=== PATIENT | female | born 1990 | race Caucasian/White ===

== ENCOUNTER 2019-12-30 14:15 | Emergency (ER) | payer OTHER, SELFPAY ==
[2019-12-30 14:23] VITALS: BP 119/68; PULSE 93; RESP 16; TEMP 36.4; O2SAT 100
--- NOTE | 2019-12-30 14:32 | ED.GENADULT ---
HPI - General Adult General Chief complaint: Back Pain/Injury Stated complaint: back injury Time Seen by Provider: 12/30/19 14:32 Source: patient Mode of arrival: ambulatory Limitations: no limitations History of Present Illness HPI narrative: 29-year-old female patient presents to the [facility] with complaints of low back pain that started yesterday. Patient states that she was picking up her knees trying to give her medication and twisted and fell onto the couch. Patient states that she did not have any immediate pain but about 2 hours later started having pain to the lower back on the left side. Patient denies any numbness or tingling to the lower extremities. Patient denies any loss of bowel or bladder control. Patient states she has taken a couple doses of Tylenol for pain as well as a heating pad. Related Data Allergies Allergy/AdvReac Type Severity Reaction Status Date / Time Sulfa (Sulfonamide Allergy Rash Verified 12/30/19 14:32 Antibiotics) Review of Systems Review of Systems: Narrative: CONSTITUTIONAL: Denies fever, chills, or sweats. EYES: Denies visual changes, redness, or discharge. ENT: Denies rhinorrhea, congestion, sore throat, or otalgia. CARDIOVASCULAR: Denies chest pain, palpitations, or edema. RESPIRATORY: Denies cough or dyspnea. GASTROINTESTINAL: Denies abdominal pain, nausea, vomiting, or diarrhea. GENITOURINARY: Denies dysuria or hematuria. SKIN: Denies rash or itching. MUSCULOSKELETAL: Positive left-sided lower back pain, denies joint pain, or myalgia. NEUROLOGIC: Denies headache, numbness, or weakness. PSYCHIATRIC: Denies anxiety or depression. PMFSH Comments At the time of my signature I agree with nursing past medical history, surgical, social, and family history. There is no relevant family history pertinent to the presenting complaint. Exam Narrative: Exam Narrative: GENERAL: Well-appearing, well-nourished, and in no acute distress. HEAD: Normocephalic, atraumatic. EYES: PERRLA and EOMI. ENT: Nares clear, no rhinorrhea or epistaxis. Mucous membranes moist. NECK: Supple. No lymphadenopathy CHEST: Clear to auscultation. No respiratory distress. HEART: Regular rate and rhythm. No murmur heard. Normal peripheral pulses. ABDOMEN: Soft, nontender, nondistended, normal active bowel sounds. EXTREMITIES: Normal range of motion. No edema. BACK: Patient is able to ambulated without assistance. No surface trauma noted. muscle tenderness to Palpation with a small muscle spasm noted to the left middle back.. No step-offs or deformity noted to the cervical, thoracic or lumbar spine to firm Palpation at the midline. No CVA tenderness to percussion. No saddle anesthesia. ROM: able to stand erect. Normal flexion, extension, Lateral bending and rotation without limitation or complaint of pain. SKIN: Warm, dry, no rash. NEURO: No focal deficits. Alert and oriented x3. Course Vital Signs Vital signs: Vital Signs Temperature 36.4 C 12/30/19 14:23 Pulse Rate 93 12/30/19 14:23 Respiratory Rate 16 12/30/19 14:23 Blood Pressure 119/68 12/30/19 14:23 Pulse Oximetry 100 12/30/19 14:23 Temperature 36.4 C 12/30/19 14:23 Pulse Rate 93 12/30/19 14:23 Respiratory Rate 16 12/30/19 14:23 Blood Pressure 119/68 12/30/19 14:23 Pulse Oximetry 100 12/30/19 14:23 Vital signs reviewed. Medical Decision Making Differential Diagnosis Differential Diagnosis: Differential diagnosis: Acute musculoskeletal injury or exacerbation, neurological emergency, acute coronary syndrome, kidney stones, epidural abscess or hematoma,Cauda Equina Syndrome, herniation. Discussed with patient this is most likely muscle spasm due to her twisting and falling yesterday. Discussed with her that she should continue using Tylenol and ibuprofen to help with the pain, continue using a heating pad and doing gentle stretching exercises and massage. Discussed with her I will give her a little bit of muscle relaxant a
== END 2019-12-30 14:50 | disposition home or self-care (01) ==
PROVIDERS: Emergency Provider Nurse Practitioner Family
DX: M62.830 Muscle spasm of back (principal)
CPT/HCPCS: 99203; G0463

== ENCOUNTER 2020-05-18 12:46 | Emergency (ER) | payer MEDICAID, SELFPAY ==
[2020-05-18 13:25] VITALS: BP 140/92; PULSE 104; RESP 20; TEMP 37; O2SAT 99
--- NOTE | 2020-05-18 13:33 | ED.URI ---
HPI - URI/Sore Throat General Chief Complaint: Upper Respiratory Infection Stated Complaint: URI Time Seen by Provider: 05/18/20 13:33 Source: patient and RN notes reviewed History of Present Illness HPI Narrative: Patient is a 30-year-old female who presents the urgent care with complaints of 3-day history of intermittent headaches and sinus pressure with a runny nose. Patient states that she drank some Mucinex liquid this morning without much improvement. Denies of any wheezing, shortness of breath, fever, nausea, vomiting. Patient has not anything else [id number] for her symptoms. No other acute complaints. No acute distress noted. Patient read the plan of care. Related Data Home Medications Medication Instructions Recorded Confirmed No Home Medications 05/18/20 05/18/20 Allergies Allergy/AdvReac Type Severity Reaction Status Date / Time pseudoephedrine Allergy Hives Verified 05/18/20 13:43 [From [facility]] Sulfa (Sulfonamide Allergy Rash Verified 12/30/19 14:32 Antibiotics) Review of Systems Review of Systems: Narrative: CONSTITUTIONAL: Denies fever, chills, or sweats. EYES: Denies visual changes, redness, or discharge. ENT: Reports of runny nose, sinus pressure and intermittent sore throat CARDIOVASCULAR: Denies chest pain, palpitations, or edema. RESPIRATORY: Denies cough or dyspnea. GASTROINTESTINAL: Denies abdominal pain, nausea, vomiting, or diarrhea. GENITOURINARY: Denies dysuria or hematuria. SKIN: Denies rash or itching. MUSCULOSKELETAL: Denies back pain, joint pain, or myalgia. NEUROLOGIC: Denies headache, numbness, or weakness. All other systems reviewed are negative, except as documented in HPI. PMFSH Comments At the time of my signature, I reviewed and agree with the nursing past medical, surgical, social, and family history. There is no relevant family history pertinent to the patient complaint. Exam Narrative: Exam Narrative: GENERAL: This is a well-nourished, well-developed patient, in no apparent distress. HEAD: normocephalic, atraumatic. Frontal sinus tenderness EYES: PERRL. Sclera clear/white. Vision is grossly intact. EARS: External ears normal, auditory canals clear and without drainage, TMs normal without perforation. Hearing grossly intact. NOSE: External nose normal with no obvious nasal discharge, nares without redness, no rhinorrhea. THROAT: Mucous membranes moist, posterior pharynx clear. Moderate postnasal drainage NECK: Neck supple CARDIOVASCULAR: Regular rate and rhythm without murmurs, gallops, or rubs. RESPIRATORY: Clear to auscultation. Breath sounds equal bilaterally. No wheezes, rales, or rhonchi. SKIN: warm, intact with no suspicious lesions or rash, good texture and turgor. NEURO: awake, alert, and oriented to person, place and time. There were no obvious focal neurologic abnormalities. EXTREMITIES: No clubbing, cyanosis, or edema. Course Vital Signs Vital signs: Vital Signs Temperature 98.6 F 05/18/20 13:25 Pulse Rate 104 H 05/18/20 13:25 Respiratory Rate 20 05/18/20 13:25 Blood Pressure 140/92 H 05/18/20 13:25 Pulse Oximetry 99 05/18/20 13:25 Temperature 98.6 F 05/18/20 13:25 Pulse Rate 104 H 05/18/20 13:25 Respiratory Rate 20 05/18/20 13:25 Blood Pressure 140/92 H 05/18/20 13:25 Pulse Oximetry 99 05/18/20 13:25 Reviewed?patient is informed that they may have pre-hypertension or hypertension based on a blood pressure reading in the department. I recommend the patient call the primary care provider listed on their discharge instructions or a physician of their choice this week to arrange follow-up for further evaluation of possible pre-hypertension or hypertension. MDM - URI/Sore Throat MDM Narrative Medical decision making narrative: Advised mother to use Claritin and Flonase as directed for symptom relief. May use Tylenol/ibuprofen as needed. Increase fluids and rest. Use humidifier at night and do not sleep w
== END 2020-05-18 14:09 | disposition home or self-care (01) ==
PROVIDERS: Emergency Provider Nurse Practitioner Family
DX: J32.9 Chronic sinusitis, unspecified (principal)
CPT/HCPCS: 99211; G0463

== ENCOUNTER 2023-11-17 10:45 | Emergency (ER) | payer OTHER, SELFPAY ==
[2023-11-17 10:53] VITALS: BP 157/84; PULSE 95; RESP 16; TEMP 36.6; O2SAT 100
--- NOTE | 2023-11-17 12:23 | ED.URI ---
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 Patient also reports frequency of urination for the past 2-3 days, denies any burning or pain with urination no fevers chills or sweats and denies any nausea or vomiting. Patient denies any vaginal discharge or itching denies any concern for exposure to STD's. Patient reports that she has been taking Tylenol for her symptoms. MD elicited complaint: sore throat and other (strep exposure, urinary frequency) Onset (ago): day(s) (2-3) Pain scale (0-10): 5 Able to tolerate fluids by mouth: Yes Treatments prior to arrival: acetaminophen Related Data Allergies Allergy/AdvReac Type Severity Reaction Status Date / Time pseudoephedrine Allergy Hives Verified 11/17/23 11:16 [From Sudafed] Sulfa (Sulfonamide Allergy Rash Verified 11/17/23 11:16 Antibiotics) Review of Systems Review of Systems: CONSTITUTIONAL: Denies fever, chills, or sweats. EYES: Denies visual changes, redness, or discharge. ENT: Denies rhinorrhea, congestion, positive for sore throat, no otalgia. CARDIOVASCULAR: Denies chest pain, palpitations, or edema. RESPIRATORY: Denies cough or dyspnea. GASTROINTESTINAL: Denies abdominal pain, nausea, vomiting, or diarrhea. GENITOURINARY: Denies dysuria or hematuria.reports urinary frequency SKIN: Denies rash or itching. MUSCULOSKELETAL: Denies back pain, joint pain, or myalgia. NEUROLOGIC: Denies headache, numbness, or weakness. PSYCHIATRIC: Denies anxiety or depression. All systems reviewed & are unremarkable except as noted in HPI and below PMFSH Past Medical History Medical History (Updated 11/19/23 @ 09:31 by Yue Diaz NP) Hypertension Social History Social History (Updated 11/19/23 @ 09:31 by Yue Diaz NP) Smoking status: Never smoker Alcohol intake: current Alcohol use details: rare Substance use type: does not use Living arrangements: with family Gender identity (if verbalized by the patient): Female Comments At time of signature, agree with nursing past medical, surgical, social and family history. There is no relevant family history pertinent to the presenting complaint Exam Narrative: GENERAL: Well-appearing, well-nourished, and in no acute distress. HEAD: Normocephalic, atraumatic. EYES: PERRLA and EOMI. ENT: Nares clear, no rhinorrhea or epistaxis. Mucous membranes moist.TM's normal throat red with tonsils swollen, voices painful swallowing NECK: Supple.lymphadenopathy present CHEST: Clear to auscultation. No respiratory distress. no cough noted SAO2 100% on room air HEART: Regular rate and rhythm. No murmur heard. Normal peripheral pulses. ABDOMEN: Soft, nontender, nondistended, normal active bowel sounds. EXTREMITIES: Normal range of motion. No edema. SKIN: Warm, dry, no rash. NEURO: No focal deficits. Alert and oriented x3. Course Course Emergency Course: Patient is aware of diagnosis, understands and agrees to treatment plan.? Anticipatory guidance given.? Patient agrees to follow-up as directed and is aware of reasons to seek care at the emergency department. Portions of this record may have been created with voice recognition software Level of Care: Express Care Visit Vital Signs Vital signs: Vital Signs Temperature 36.6 C 11/17/23 10:53 Pulse Rate 95 11/17/23 10:53 Respiratory Rate 16 11/17/23 10:53 Blood Pressure 157/84 H 11/17/23 10:53 Pulse Oximetry 100 11/17/23 10:53 Oxygen Delivery Room Air 11/17/23 10:53 Temperature 36.6 C 11/17/23 10:53 Pulse Rat
== END 2023-11-17 12:36 | disposition home or self-care (01) ==
PROVIDERS: Emergency Provider Registered Nurse
DX: J03.90 Acute tonsillitis, unspecified (principal); Z20.818 Contact with and (suspected) exposure to other bacterial communicable diseases; I10 Essential (primary) hypertension
CPT/HCPCS: 81003; 87081; 87880; 99203; G0463

== ENCOUNTER 2025-07-17 17:07 | Emergency (ER) | payer OTHER, SELFPAY ==
--- OUTSIDE RECORDS SUMMARY | 2025-07-17 17:09 | XMS_ITS | Encounter Summary ---
Author Organization [facility] Address [address] [place] [address] Phone Care Team Providers Care Rn Patient Care Name Role Phone No, Physician Primary Care Provider [phone] Ruthie Duran MD Primary Care Provider Encounter Details Date Type Department Care Team (Latest Contact Info) Description 02/03/2018 Orders Only [facility] CONVERSION Scanning, Provider Social History Tobacco Use Types Packs/Day Years Used Date Smoking Tobacco: Former Comments Yes Sex and Gender Information Value Date Recorded Sex Assigned at Not on file 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 Gender Identity Not on file Sexual Orientation Not on file documented as of this encounter Plan of Treatment Not on file documented as of this encounter Procedures Procedure Name Priority Date/Time Associated Diagnosis Comments OBSTETRIC/GYNECOLOGY ULTRASONOGRAPHY REPORT 03/02/2018 2:07 PM CDT OBSTETRIC/GYNECOLOGY ULTRASONOGRAPHY REPORT 02/23/2018 4:11 PM CDT OBSTETRIC/GYNECOLOGY ULTRASONOGRAPHY REPORT 02/16/2018 1:03 PM CDT OBSTETRIC/GYNECOLOGY ULTRASONOGRAPHY REPORT 02/11/2018 12:32 PM CDT OBSTETRIC/GYNECOLOGY ULTRASONOGRAPHY REPORT 02/03/2018 11:39 AM CDT documented in this encounter Results * OBSTETRIC/GYNECOLOGY ULTRASONOGRAPHY REPORT (03/02/2018 2:07 PM CDT) Anatomical Region Laterality Modality Ultrasound us Provider Scanning IMG OB US PROCEDURES Final Res ult * OBSTETRIC/GYNECOLOGY ULTRASONOGRAPHY REPORT (02/23/2018 4:11 PM CDT) Anatomical Region Laterality Modality Ultrasound us Provider Scanning IMG OB US PROCEDURES Final Res ult * OBSTETRIC/GYNECOLOGY ULTRASONOGRAPHY REPORT (02/16/2018 1:03 PM CDT) Anatomical Region Laterality Modality Ultrasound us Provider Scanning IMG OB US PROCEDURES Final Res ult * OBSTETRIC/GYNECOLOGY ULTRASONOGRAPHY REPORT (02/11/2018 12:32 PM CDT) Anatomical Region Laterality Modality Ultrasound us Provider Scanning IMG OB US PROCEDURES Final Res ult * OBSTETRIC/GYNECOLOGY ULTRASONOGRAPHY REPORT (02/03/2018 11:39 AM CDT) Anatomical Region Laterality Modality Ultrasound us Provider Scanning IMG OB US PROCEDURES Final Res ult documented in this encounter Visit Diagnoses Not on filedocumented in this encounter Additional Health Concerns Infection Onset Date Last Indicated Resolved Time COVID: Suspected 10/31/2021 10/31/2021 11/01/2021 10:21 AM 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 11/10/2021 11/11/2021 03/10/2022 3:05 AM C DT documented as of this encounter Care Teams Rn Patient Care Relationship Specialty Start Date End Date No, Physician PCP - General 08/19/17 10/28/23 Ruthie Duran MD [address] [place] [address] [address] [place] [address] PCP - General Family Medicine 10/29/23 documented as of this encounter
--- OUTSIDE RECORDS SUMMARY | 2025-07-17 17:09 | XMS_ITS | Clinical Summary ---
Author Organization [facility] Address [address] [place] [address] Phone Care Team Providers Care Gas Leak Inspector Helper Name Role Phone Ruthie Duran MD Primary Care Provider [phone] Allergies Active Allergy Reactions Criticality Noted Date Comments Sulfa Antibiotics Hives 05/29/2016 Medications ondansetron (ZOFRAN) 4 MG Tablet Take 1-2 Tabs by mouth every 8 hours as needed for Nausea - 1st line. 15 Tab 12/14/2018 Active HYDROcodone-kecia taminophen (NORCO) 5-325 MG TabletIndicatio ns:Infected dental caries Take 1 Tablet by mouth every 8 hours as needed for Moderate or more severe pain or Severe pain. 12 Tablet 07/21/2021 Active HYDROcodone-kecia taminophen (NORCO) 5-325 MG TabletIndicatio ns:Infected dental caries Take 1 Tablet by mouth every 8 hours as needed for Severe pain. 12 Tablet 07/21/2021 Active Vit-Fe Fumarate-FA ( VITAMINS PO) Take by mouth. Active hydrOXYzine (VISTARIL) 25 MG CapsuleIndicati ons:Anxiety Take 1 Capsule by mouth 3 times daily as needed for Anxiety. Indications: Feeling Anxious 30 Capsule 01/25/2025 Active Active Problems No known active problems Immunizations Immunization Administration Dates Next Due DTP Vaccine 07/29/1994, 1,01/24/1990,1989,1989 Hepatitis B Vaccine, Pediatric/adolescent 06/01/2000,07/16/1999 Hib Vaccine,unspecified Formulation 07/19/1990 Influenza Vaccine,unspecifie d Formulation 08/30/2006 MMR Vaccine 07/29/1994,07/19/1990 OPV 07/29/1994, 1,01/24/1990,1988 TD VACCINE 12/31/2005 TDAP Vaccine 03/20/2022,01/31/2018,2013 Family History Medical History Relation Name Comments Cancer Father Diabetes Mother Hypertension Mother Relation Name Status Comments Father Alive Mother Alive Social History Tobacco Use Types Packs/Day Years Used Date Smoking Tobacco: Former Cigarettes Smokeless Tobacco: Never Alcohol Use Standard Drinks/Week Comments No 0 (1 standard drink = 0.6 oz pur e alcohol) PHQ-2 Answer Date Recorded PHQ-2 Score 0 06/27/2019 Comments Unknown Sex and Gender Information Value Date Recorded Sex Assigned at Not on file Legal Sex Female 2:39 PM CDT Gender Identity Not on file Sexual Orientation Not on file Last Filed Vital Signs Vital Sign Reading Time Taken Comments Blood Pressure 109/66 01/25/2025 9:15 PM CDT Pulse 72 01/25/2025 9:15 PM CDT Temperature 36.9 C (98.5 F) 01/25/2025 7:38 PM CDT Respiratory Rate 17 01/25/2025 9:15 PM CDT Oxygen Saturation 98% 01/25/2025 9:15 PM CDT Inhaled Oxygen Concentration - - Weight 122 kg (269 lb) 01/25/2025 7:38 PM CDT Height 170.2 cm (5' 7) 01/25/2025 7:38 PM CDT Body Mass Index 42.13 01/25/2025 7:38 PM CDT Plan of Treatment Health Maintenance Due Date Last Done Comments Hepatitis C Virus (HCV) Screening 1989 Hepatitis B Immunization (3 of 3 - 3-dose series) 07/27/2000 06/01/2000, 07/16/1999 Human Papillomavirus (HPV) Immunization (1 - 3-dose SCDM series) 2016 HPV/Cotest 2019 Cervical Cancer Screening (CCS) 11/13/2019 Pap Smear 11/13/2019 11/13/2016 Influenza Immunization (#1) 2025 08/30/2006 SARS-COV-2 Immunization (2023-25 season) 2025 DTaP/Tdap/Td Immunization (9 - Td or Tdap) 03/20/2032 03/20/2022, 01/31/2018, 2013, Additional history exists Respiratory Syncytial Virus (RSV) Immunization (Adult) (1 - 1-dose 75+ series) 2064 TdaP Immunization Discontinued 03/20/2022, , 2013 Meningococcal Immunization (ACWY) Aged Out No longer eligible based on patient's age to complete this topic Pneumococcal Immunization Combined Aged Out No longer eligible based on patient's age to complete this topic Rotavirus Immunization Aged Out No lo nger eligible based on patient's age to complete this topic Procedures Procedure Name Priority Date/Time Associated Diagnosis Comments PATHOLOGY CYTOLOGY AMBULANCE ATTENDANT Routine 11/13/2016 from Last 3 Months or Most Recently Relevant to Health Maintenance Results * PATHOLOGY CYTOLOGY AMBULANCE ATTENDANT (11/13/2016) Specimen of unknown material (specimen) Negra Gonzalez PAC PATHOLOGY/CYTOLOGY ORDERA BLES Final Result from Last 3 Months or Most Recently Relevant to Health Maintenance Insurance MEDICAID [employer] Care Teams Gas Leak Inspector Helper Relationship Specialty Start Date End Date Ruthie Duran MD [address] [place] [address] [facility] [place] [address] PCP - General Family Medicine 05/21/24
--- OUTSIDE RECORDS SUMMARY | 2025-07-17 17:10 | XMS_ITS | Encounter Summary ---
Author Organization [facility] Address [address] [place] [address] Phone Care Team Providers Care Information Technology Professor Name Role Phone No, Physician Primary Care Provider [phone] Ruthie Duran MD Primary Care Provider Encounter Details Date Type Department Care Team (Latest Contact Info) Description 12/06/2017 Orders Only [facility] CONVERSION Scanning, Provider Social History Tobacco Use Types Packs/Day Years Used Date Smoking Tobacco: Unknown Comments Yes Sex and Gender Information Value Date Recorded Sex Assigned at Not on file 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 Gender Identity Not on file Sexual Orientation Not on file documented as of this encounter Plan of Treatment Not on file documented as of this encounter Procedures Procedure Name Priority Date/Time Associated Diagnosis Comments OBSTETRIC/GYNECOLOGY ULTRASONOGRAPHY REPORT 01/03/2018 2:42 PM CDT OBSTETRIC/GYNECOLOGY ULTRASONOGRAPHY REPORT 12/06/2017 5:04 PM STUDENT SPECIALIST documented in this encounter Results * OBSTETRIC/GYNECOLOGY ULTRASONOGRAPHY REPORT (01/03/2018 2:42 PM CDT) Anatomical Region Laterality Modality Ultrasound us Provider Scanning IMG OB US PROCEDURES Final Res ult * OBSTETRIC/GYNECOLOGY ULTRASONOGRAPHY REPORT (12/06/2017 5:04 PM STUDENT SPECIALIST) Anatomical Region Laterality Modality Ultrasound us Provider Scanning IMG OB US PROCEDURES Final Res ult documented in this encounter Visit Diagnoses Not on filedocumented in this encounter Additional Health Concerns Infection Onset Date Last Indicated Resolved Time COVID: Suspected 10/31/2021 10/31/2021 11/01/2021 10:21 AM STUDENT SPECIALIST COVID19 10/31/2021 10/31/2021 11/10/2021 3:05 AM STUDENT SPECIALIST COVID: Recovered Comment:Added based on recent COVID infection. 11/10/2021 11/11/2021 03/10/2022 3:05 AM C DT documented as of this encounter Care Teams Information Technology Professor Relationship Specialty Start Date End Date No, Physician PCP - General 08/19/17 10/28/23 Ruthie Duran MD [address] [facility] [address] [place] [id number] PCP - General Family Medicine 10/29/23 documented as of this encounter
--- OUTSIDE RECORDS SUMMARY | 2025-07-17 17:10 | XMS_ITS | Clinical Summary ---
Author Organization [facility] Address [address] [place] [address] Care Team Providers Care Pulley Worker Name Role Phone Ruthie Duran MD Primary Care Provider Allergies Active Allergy Reactions Criticality Noted Date Comments Sulfa (Sulfonamide Antibiotics) Rash,Hives Medium 09/11 Medications albuterol HFA (PROVENTIL HFA,VENTOLIN HFA,PROAIR HFA) 90 mcg/actuation inhalerIndication s:Acute Asthma Attack Inhale 2 puffs every 6 (six) hours as needed for wheezing 1 each 1 2 Active Additional Information Patient not taking.Reported on 01/15/2022 vitamin ferrous fumarate-folic () 28 mg iron- 800 mcg tablet Take 1 tablet by mouth daily 30 tablet 11 2 Active docusate sodium (COLACE) 100 mg capsuleIndication s:constipation,St ool Softener Take 1 capsule (100 mg total) by mouth 2 (two) times a day 60 capsule 2 Active ibuprofen (ADVIL,MOTRIN) 600 mg tabletIndications :Cramps Take 1 tablet (600 mg total) by mouth every 6 (six) hours as needed for pain 40 tablet 2 Active norethindrone (MICRONOR) 0.35 mg tabletIndications : Contraception Take 1 tablet (0.35 mg total) by mouth daily 1 po qd at same time of day 84 tablet 4 5 Active lisinopriL (PRINIVIL,ZESTRIL ) 20 mg tablet Take 1 tablet (20 mg total) by mouth daily Active Active Problems Problem Noted Date Diagnosed Date Tubal ligation evaluation 01/15/2022 Overview (01/15/2022): 01/15- Desires permanent contraception. [place] papers signed today. Mild intermittent asthma 11/25/2021 Overview (03/20/2022): Reports rare asthma use. Denies hospitalizations or intubations. 11/25- Reports an increase in symptoms since COVID diagnosis, needs a rescue inhaler. Rx sent. 12/30/21-Denies symptoms. 01/15- Asymptomatic. 03/17- Asymptomatic. Chronic hypertension during 09/02/2021 Overview (03/20/2022): S/p counseling CURRENT REGIMEN: ASA 81 mg daily, counseled to stop taking 03/20 in anticipation of delivery [x]Baseline labs: crea 0.66, ALT AST 7 14 plts 377. 09/30- 24 hour urine supplies given [x]ASA therapy: Rx sent, instructed to start at 12 weeks. 09/30- Reviewed the need to start ASA [x]BP monitoring [x]EKG: ordered. NSR [x]serial GS - AGA 03/13 [x]Delivery 38-39 wks - IOL scheduled on 03/25 @ 0530 at 39 weeks Assessment & Plan (03/13/2022 9:26 AM CDT): Given mild range today and report of BP 150s at home and gestational age, to [facility] for rule out superimposed preE at term. [facility] INSTRUCTIONAL TECHNOLOGY TEACHER aware. Assessment & Plan (02/19/2022 4:47 PM CDT): Sent to [facility] today for rule out preE given severe range BPs. Discussed possibility of delivery given GA H/O: section 09/02/2021 Overview (03/20/2022): 2018- LTCS for Di Di with malpresentation with transverse and breech position. 01/15- Is undecided if she wants a TOLAC or rCS. Desires BS at time of delivery. Will have resident consult to discuss options. 02/19- Reviewed TOLAC counseling. No longer desires BTL, rather depo. Desires TOLAC and reviewed she is great candidate 03/20- Again reviewed TOLAC, patient still desiring TOLAC. IOL scheduled 03/25. Dental caries 07/07/2019 Overview (09/02/2021): 09/02- Patient reports that she has appt to have four teeth pulled, dental letter given. Obesity 10/19/2017 Resolved Problems Problem Noted Date Diagnosed Date Resolved Date care following vaginal delivery 03/26/2022 01/23/2025 Overview (03/27/2022): # ID: Afebrile. No signs/symptoms of infection. #COVID-19: Test not indicated # Heme: EBL 150 mL. No symptoms acute blood loss anemia. # CV/Pulm: Chronic hypertension - Blood pressures well controlled on no meds. Asymptomatic, denies JULES/RUQ pain/vision changes. CBC/CMP wnl, UPC 105. Consented for home BP monitoring 03/27 AM. #SD asthma- continue PRN albuterol # GI/: Tolerating PO. Voiding spontaneously. # Pain: Controlled with above regimen. # Post DVT prophylaxis: The patient has the following MAJOR risk factors BMI >/= 40 and the following MINOR risk factors parity >/=3. enoxaparin 40 mg BID ordered for VTE prophylaxis. # MOC: Depo-provera (ordered) # MOF: Formula feeding Urine drug screen not indicated. Patient informed of results: N/A. # COVID Vaccination Status: Not assessed # Disposition: Follow up task sent to [facility] scheduling pool. Continue routine care. Pt desires discharge to home today pending clearance. Encounter for induction of labor 03/25/2022 01/23/2025 Overview (03/25/2022): 1. TOLAC/IOL: Admit to L&D. Consents signed and placed in chart. Sending CBC/T&S. Induction of labor with pitocin. 2. FWB: Continuous monitoring. Reactive NST 3. ID: HIV negative. GBS negative. Membrane Status: intact. 4. Indications for UDS: none. Verbal consent obtained for UDS: Not indicated 5. MOF: Plans to formula feed. Urine drug screen not indicated. Patient informed of results: N/A 6. MOC: Plans to use DMPA for contraception. 7. Pain management: Desires epidural when ready. 8. Post DVT prophylaxis: The patient has the following MAJOR risk factors BMI >/= 40 and the following MINOR risk factors parity >/=3. enoxaparin 40 mg BID will be ordered for VTE prophylaxis . 9. COVID Vaccine Status: Not assessed 10. COVID Test Status: Test not indicated 11. H/o CSx1 - pLTCS for DiDiTIUP for malpresentation (transverse/breech). Desires TOLAC 12. cHTN, H/o PreE - Baseline labs: Cr 0.66, ALT/AST 04/23, on ASA. Current regimen: no meds. SR blood pressure on admission, not sustained. CBC/CMP/UPC ordered on admission. 13. SD asthma - rare albuterol use. Denies hospitalization or intubations Vaginal bleeding in -RESOLVED 09/30/2021 01/23/2025 Overview (10/28/2021): 09/30- Reports woke up and noticed blood in her urine and when wiping. States the blood began as bright red and and progressively become darker. Exam revealed small mucus blood clot at cervical os. Os closed. Formal ultrasound today did not reveal JUN. L=1. Reviewed [facility] precautions. 10/28- Resolved Hx of preeclampsia, prior pr egnancy, currently 09/02/2021 01/23/2025 Overview (03/20/2022): Stopped taking ASA 81 mg, counseled to continue cessation anticipating delivery. Encounter for supervision of normal in third trimester 09/02/2021 01/23/2025 Overview (03/21/2022): [x] Dating Criteria: L=1 [x] Labs: Type/Screen- A+ H/H- 13/38,Rubella I ,HIV NR ,HepB NR ,HepC NR ,RPR NR [x] Genetic Screening: MSAFP/QUAD, [place]: 10/28- declines [] Hgb electrophoresis (if indicated): [x] GC/CT/ Trich- Neg panel Urine Culture: UDS: [x] Pap:07/2021 NIL, HR HPV negative [] PNBHS referral (if indicated) Anatomy ultrasound: 314g 42%ile. Placenta anterior- no previa. 2nd Tri Labs: [x] CBC: 10.5/31.5 Plt: 313 1hr gtt at 24-28wks: 120 [x] Flu Shot (Jun-Sep) 11/25- Declines [x] Tdap (27-36wks): Received 03/20 [] Rhogam (if Rh neg):N/A A+ 3rd Tri Labs: [x] CBC/HIV/RPR: Hgb 10.3, HIV-, RPR NR [x] GBS: Neg [x] GC/CT/trich: Neg/neg/neg Counseling: [x] MOD: Desires TOLAC, IOL scheduled on 03/25 @ 0530 at 39 weeks [x] MOC: BTL [place] papers signed 01/15 however desires DMPA now [x] Method of feeding: Formula [x] Sulfate Drier Machine Operator: Dr Chan [x] Car seat Discussed [x] PP Depression Signs and Symptoms Discussed Well woman exam 07/15/2021 09/16/2021 Overview (07/15/2021): Pap collected today STI screening sent, declined urine panel Contraception- opts for POPs. Considering Mirena. Reviewed breast health RTC in one year or sooner Borderline blood pressure 07/15/2021 Overview (07/15/2021): Patient meets the criteria of cHTN with two documented MR BPs here at the clinic.Reports her PCP has repeatedly told her that her BP is nl. Dentalgia 07/07/2019 09/02/2021 Encounter for routine follow-up 04/03/2018 07/15/2021 Postoperative observation 04/01/2018 Overview (04/01/2018): Doing well post-op Breastfeed Stable mood Has resumed sexual intercourse without rachel Using depo for control, next injection is due by Jun 04, 2018 Plan to RTC week of May 30, 2018 Hypertension affecting 03/02/2018 07/15/2021 growth restriction 02/16/201802/2021 Dichorionic diamniotic twin 10/19/2017 04/01/2018 Antepartum placenta previa without hemorrhage 10/19/19 18 07/15/2021 Twin , antepartum c ondition or complication 10/08/2017 07/15/2021 Immunizations Immunization Administration Dates Next Due Tdap 03/20/2022 Surgical History Surgery Date Site/Laterality Comments SECTION Medical History Medical History Date Comments Asthma Hypertension Family History Medical History Relation Name Comments Hypertension Father Diabetes Mother Hypertension Mother Relation Name Status Comments Father Mother Social History Tobacco Use Types Packs/Day Years Used Date Smoking Tobacco: Former Smokeless Tobacco: Never Tobacco Cessation:Counseling Given: Not Answered Alcohol Use Standard Drinks/Week Comments No 0 (1 standard drink = 0.6 oz pur e alcohol) Social Connection and Isolation Panel Answer Date Recorded In a typical week, how many times do you talk on the phone with family, friends, or neighbors? More than three times a week 03/27/2022 How often do you get togethe r with friends or relatives? More than three times a week 03/27/2022 How often do you attend [facility] or jain services? More than 4 times per year 03/27/2022 Do you belong to any clubs o r organizations such as anglican groups, unions, fraternal or athletic groups, or school groups? No 03/27/2022 How often do you attend meet ings of the clubs or organizations you belong to? Never 03/27/2022 Are you , , di vorced, , never , or living with a partner? 03/27/2022 AUDIT-C Answer Date Recorded Q1: How often do you have a drink containing alc ohol? Never 03/13/2022 Average Number of Drinks Not on file 022 Frequency of Binge Drinking Not on file 12/2021 Overall Financial Resource Strain (CARDIA) Answe r Date Recorded How hard is it for you to pa y for the very basics like food, housing, medical care, and heating? Not hard at all 03/27/2022 Hunger Vital Sign Answer Date Recorded Within the past 12 months, y ou worried that your food would run out before you got the money to buy more. Never true 01/24/20 25 Within the past 12 months, t he food you bought just didn't last and you didn't have money to get more. Never true 01/23/2025 PRAPARE - Transportation Answer Date Re corded In the past 12 months, has l ack of transportation kept you from medical appointments or from getting medications? No 03/11 In the past 12 months, has l ack of transportation kept you from meetings, work, or from getting things needed for daily living? No 03/27/2022 Housing Stability Vital Sign Answer Michael e Recorded In the last 12 months, was t here a time when you were not able to pay the mortgage or rent on time? No 03/27/2022 In the last 12 months, how many places have you lived? 1 03/27/2022 In the last 12 months, was t here a time when you did not have a steady place to sleep or slept in a intermediate (including now)? No 03/27/2022 Vega Depression Scale Answer Date Recorded Vega Depression Scale Total 1 12/30/2021 The thought of harming myself has occurred to me . Never 12/30/2021 Comments No Sex and Gender Information Value Date Recorded Sex Assigned at Not on file Legal Sex Female 5:25 PM DIABETES TRAINER Gender Identity Not on file Sexual Orientation Not on file Obstetrics History Para Term AB IAB SAB Ectopic Multiple Livin g Live Births 5 4 4 0 1 1 0 1 5 5 Date Outcome GA Total Labor Labor/2nd/3rd Weight Sex Type Anes PTL Tara A1 A5 Name Clin SAB 2008 Term F Vag-S pont Complications:None 2014 Term Vag-S pont Complications:None 2017 Term CS-LT ranv 2017 Term CS-LT ranv Complications:None 022 Term 39w 1d 26h 00m 25h 51m/0h 05m/0h 04m 3.36 kg (7 lb 6.5 oz) M Epidur al N Livin g 8 9 MAX ABEBE, Mat Pyle MD Complications:None Delivery Location:[facility] Main C ampus ([facility] 58LD) Last Filed Vital Signs Vital Sign Reading Time Taken Comments Blood Pressure 164/84 01/23/2025 1:46 PM CDT Pulse 93 01/23/2025 1:46 PM CDT Temperature 36.7 C (98.1 F) 07/19/2022 3:33 PM CDT Respiratory Rate 18 07/19/2022 3:33 PM CDT Oxygen Saturation 98% 01/23/2025 1:46 PM CDT Inhaled Oxygen Concentration - - Weight 122.2 kg (269 lb 6.4 oz) 01/23/2025 1:46 PM CDT Height 162.6 cm (5' 4) 01/23/2025 1:46 PM CDT Body Mass Index 46.24 01/23/2025 1:46 PM CDT Plan of Treatment Health Maintenance Due Date Last Done Comments Varicella Vaccines (1 of 2 - 13+ 2-dose series) 2002 Pneumococcal vaccine <65 (1 of 2 - PCV) 2008 HPV Vaccines (1 - 3-dose SCD M series) 2016 Cervical Cancer Screening 07/15/2022 07/15/2021 Regular Well Visit/Exam 18-64 07/15/2022 07/15/2021 Depression Screening 12/30/2022 12/30/2021 Influenza Vaccine (#1) 2025 08/30/2006 DTaP/Tdap/Td Vaccine (9 - Td or Tdap) 03/20/2032 03/20/2022, 01/31/2018, 2013, Additional history exists Hepatitis B Screening Completed 06/01/2000, 999 Hepatitis C Screening Completed 09/02/2021 Procedures Procedure Name Priority Date/Time Associated Diagnosis Comments HEPATITIS C ANTIBODY Routine 09/02/2021 11:49 AM DIABETES TRAINER Normal , incidental PAP AND HIGH RISK HPV, REFLEX TO GENOTYPING Routine 07/15/2021 2:37 PM CDT Women's annual routine gynecological examination from Last 3 Months or Most Recently Relevant to Health Maintenance Results * Hepatitis C antibody (09/02/2021 11:49 AM DIABETES TRAINER) Hep C Ab Nonreactive Nonreactive JOANNA [facility] Comment:Antibodies to HCV no t detected. Does NOT exclude the possibility of recent exposure to HCV. Blood 09/02/2021 11:4 9 AM DIABETES TRAINER 09/02/2021 12:27 PM DIABETES TRAINER us Alberto Ellison NP LAB MICROBIOLOGY - GENERAL O RDERABLES Edited Result - Final JOANNA [facility] Department [place] [address] * Pap and High Risk HPV, reflex to Genotyping (07/15/2021 2:37 PM CDT) Swab (Pap test) 07/15/2021 2 :37 PM CDT 07/15/2021 5:58 PM CDT Narrative PATHOLOGY [facility] - 07/22/2021 9:18 AM CDT EPIC results best viewed via link to PDF [facility] [place] [address] Note to Patients: This report may contain a detailed description of human tissue sent by a health care provider to the laboratory for pathologic evaluation. The content of this report is essential for diagnosis and may provide important critical findings. This information may be unfamiliar to patients to review without a medical professional present. It is advised that the patient review this report in the presence of a health care provider who can answer questions and explain the details. CYTOPATHOLOGY REPORT FINAL WITH ADDENDUM Patient Name: LOLY ABEBE Gender: Melissa : 1990 (Age: 31) Address: [address] [place] [address] Hospital #: [id number] Service: Medicine Location: [facility] Patient Type: [facility] Ancillary Taken: 07/15/2021 Received: 07/15/2021 Accessioned: 07/16/2021 Reported: 07/22/2021 Physician(s): Alberto Ellison, RN FINAL INTERPRETATION SOURCE OF SPECIMEN: Liquid based Thin Prep pap with HPV STATEMENT OF ADEQUACY: - Satisfactory for evaluation - Endocervical cells/transformation zone sample absent GENERAL CATEGORY: - Negative for squamous intraepithelial lesion or malignancy DESCRIPTION: - Shift in chilango suggestive of bacterial vaginosis Comments HPV Result: NEGATIVE for high risk types of Human Papilloma Virus (HPV) RNA This probe detects the presence of HPV types: 16, 18, 31, 33, 35, 39, 45, 51, 52, 56, 58, 59, 66 and 68. This HPV test was performed at [facility] in [place], [place] utilizing the Gen-Probe Aptima assay. shira/07/22/2021 09:18 SELENA Negrete(ASCP) Report Electronically Reviewed and Signed Out By SELENA Negrete(ASCP) 07/22/2021 09:18:38 Cervicovaginal Cytology (Pap Test) Disclaimer: The Pap test is a screening test used to detect cervical cancer and its precursors; it is not a diagnostic procedure. False negative and false positive results do occur. Pap test results should be interpreted in the context of pertinent clinical information and biopsy results as indicated. Gross Description A. Liquid based Thin Prep pap with HPV: Cervical/vaginal - Screening ThinPrep with gc chlamydia and trichomonas. Clinical Diagnosis and History Last Menstrual Period: 06/25/2021 Menstrual History: Regular Cycles The patient is a 31 year old woman with cervical cancer screening. Addenda Addendum Ordered: 07/29/2021 Status: Signed Out Addendum Complete: 07/29/2021 By: Li Herrmann M.S.,SELENA(ASCP) Addendum Signed Out: 07/29/2021 Addendum Comment A digital scan of the original reference lab report will begin on page two of this addendum. By this signature, I attest that the above diagnosis is based upon my personal examination of the slides(and/or other material indicated in the diagnosis). SELENA Matias(ASCP) Report Electronically Reviewed and Signed Out By Li Herrmann M.S.,SELENA(ASCP) 07/29/2021 14:15:38 The HPV test was performed by [facility], [address] [place] [address]. The Gonorrhea/Chlamydia test was performed by [facility], [address] [place] [address]. Report Images and scanned documents, if included only viewable in PDF version The performance characteristics of some immunohistochemical stains, in-situ hybridization and fluorescence in-situ hybridization tests and immunophenotyping by flow cytometry cited in this report (if any) were determined by the Surgical Pathology Department at [facility] as part of an ongoing supervisor quality control program and in compliance with federally mandated regulations drawn from the Clinical Laboratory Improvement Act of 1988 (CLIA '88). Some of these tests rely on the use of analyte specific reagents and are subject to specific labeling requirements by the US Food and Drug Administration. Such diagnostic tests may only be performed in a facility that is certified by the Department of Health and Human Services as a high complexity laboratory under CLIA '88. The FDA has determined that such clearance or approval is not necessary. This test is used for clinical purposes. It should not be regarded as investigational or for research. Nevertheless, federal rules concerning the medical use of analyte specific reagents require that the following disclaimer be attached to the report: This test was developed and its performance characteristics determined by the Surgical Pathology Department of [facility]. It has not been cleared or approved by the U. S. Food and Drug Administration. Alberto Ellison NP LAB CYTOLOGY ORDERABLES Becki cannon Result PATHOLOGY [facility] 3rd Floor [place], [place] [phone] from Last 3 Months or Most Recently Relevant to Health Maintenance Insurance [facility] Advance Directives For more information, please contact: [phone] * Full Code (Latest Code Status on File) Date Activated Date Inactivated Comments 03/26/2022 9:20 AM 03/27/2022 6:51 PM * Full Code Date Activated Date Inactivated Comments 03/25/2022 5:59 AM 03/26/2022 9:20 AM Full CPR in case of cardiopulmonary arrest Care Teams Pulley Worker Relationship Specialty Start Date End Date Ruthie Duran MD [address] [place] [address] [place] [address] PCP - General Family Medicine 10/29/23
--- OUTSIDE RECORDS SUMMARY | 2025-07-17 17:10 | XMS_ITS | Encounter Summary ---
Author Organization [facility] Address [address] [place] [address] Phone Care Team Providers Care Gas Technician Name Role Phone No, Physician Primary Care Provider [phone] Ruthie Duran MD Primary Care Provider Encounter Details Date Type Department Care Team (Latest Contact Info) Description 10/19/2017 Orders Only [facility] CONVERSION Scanning, Provider Social History Tobacco Use Types Packs/Day Years Used Date Smoking Tobacco: Unknown Comments Yes Sex and Gender Information Value Date Recorded Sex Assigned at Not on file Legal Sex Female 5:25 PM YOUTH LEADER Gender Identity Not on file Sexual Orientation Not on file documented as of this encounter Plan of Treatment Not on file documented as of this encounter Procedures Procedure Name Priority Date/Time Associated Diagnosis Comments OBSTETRIC/GYNECOLOGY ULTRASONOGRAPHY REPORT 11/15/2017 3:22 PM YOUTH LEADER OBSTETRIC/GYNECOLOGY ULTRASONOGRAPHY REPORT 10/19/2017 3:37 PM YOUTH LEADER documented in this encounter Results * OBSTETRIC/GYNECOLOGY ULTRASONOGRAPHY REPORT (11/15/2017 3:22 PM YOUTH LEADER) Anatomical Region Laterality Modality Ultrasound us Provider Scanning IMG OB US PROCEDURES Final Res ult * OBSTETRIC/GYNECOLOGY ULTRASONOGRAPHY REPORT (10/19/2017 3:37 PM YOUTH LEADER) Anatomical Region Laterality Modality Ultrasound us Provider Scanning IMG OB US PROCEDURES Edited Re sult - Final documented in this encounter Visit Diagnoses Not on filedocumented in this encounter Additional Health Concerns Infection Onset Date Last Indicated Resolved Time COVID: Suspected 10/31/2021 10/31/2021 11/01/2021 10:21 AM YOUTH LEADER COVID19 10/31/2021 10/31/2021 11/10/2021 3:05 AM YOUTH LEADER COVID: Recovered Comment:Added based on recent COVID infection. 11/10/2021 11/11/2021 03/10/2022 3:05 AM C DT documented as of this encounter Care Teams Gas Technician Relationship Specialty Start Date End Date No, Physician PCP - General 08/19/17 10/28/23 Ruthie Duran MD [address] [facility] [address] [place] [address] [place] [id number] PCP - General Family Medicine 10/29/23 documented as of this encounter
[2025-07-17 17:20] VITALS: BP 175/95; PULSE 88; RESP 18; TEMP 36.7; O2SAT 100
--- NOTE | 2025-07-17 18:20 | PC.NURSE ---
diesel fleet mechanic for pelvic exam
--- NOTE | 2025-07-17 18:31 | ED_ITS ---
HPI - General Adult General Chief complaint: Urogenital-Female Stated complaint: poss UTI Source: patient Mode of arrival: ambulatory Limitations: no limitations History of Present Illness HPI narrative: Patient presents for evaluation of multiple symptoms. She indicates she used boric acid 4 days ago and has noted some white vaginal discharge since that time. She reports burning with urination and some pelvic cramping that started a few days ago. No fever or chills. Denies any other urinary symptoms. LMP 07/08/25. She is adherent to oral contraception without missed doses. She is sexually active, but does not think that there would be risk for STI. She has noted a bump to the suprapubic region. Related Data Home Medications ?Medication ?Instructions ?Recorded ?Confirmed ?Last Taken ?Type lisinopril 20 mg tablet mg 07/17/25 Unknown History norethindrone (contraceptive) 0.35 mg 07/17/25 Unknow n History mg tablet Allergies Allergy/AdvReac Type Severity Reaction Status Date / Time pseudoephedrine (From Allergy Hives Verified 07/17/25 17:23 Sudafed) Sulfa (Sulfonamide Allergy Rash Verified 07/17/25 17:23 Antibiotics) Review of Systems Review of Systems: CONSTITUTIONAL: Denies fever, chills, or sweats. EYES: Denies visual changes, redness, or discharge. ENT: Denies rhinorrhea, congestion, sore throat, or otalgia. CARDIOVASCULAR: Denies chest pain, palpitations, or edema. RESPIRATORY: Denies cough or dyspnea. GASTROINTESTINAL: Denies abdominal pain, nausea, vomiting, or diarrhea. GENITOURINARY: Reports white vaginal discharge and burning with urination. Denies other urinary symptoms. Reports pelvic cramping. Denies vaginal bleeding SKIN: Reports a ?bump? to the suprapubic region MUSCULOSKELETAL: Denies back pain, joint pain, or myalgia. NEUROLOGIC: Denies headache, numbness, dizziness, or weakness. PSYCHIATRIC: Denies anxiety or depression. [facility] Past Medical History Medical History Hypertension Surgical History Surgical History History of appendectomy Family History Family History Mother Family history non-contributory Social History Social History Smoking status: Never smoker Alcohol intake: current Alcohol use details: rare Substance use type: does not use Living arrangements: with family Gender identity (if verbalized by the patient): Female Exam Narrative: GENERAL: Well-appearing, well-nourished, and in no acute distress. HEAD: Normocephalic, atraumatic. EYES: PERRLA and EOMI. ENT: Nares clear, no rhinorrhea or epistaxis. Mucous membranes moist. Oropharynx without tonsillar hypertrophy exudate or other lesions. Bilateral TMs pearly beckford nonbulging NECK: Supple. No adenopathy or masses. No carotid bruits or JVD CHEST: Clear to auscultation. No respiratory distress. No wheezes rales or rhonchi HEART: Regular rate and rhythm. No murmur heard. Normal peripheral pulses. ABDOMEN: Soft, nontender, nondistended, normal active bowel sounds. EXTREMITIES: Normal range of motion. No edema. SKIN: There is a 3 mm area of erythema surrounding hair follicle of the suprapubic region. NEURO: No focal deficits. Alert and oriented x3. PSYCH: Normal mood and affect. Course Course Emergency Course: This is a 35-year-old female who presented for evaluation of white vaginal discharge following use of boric acid. Her urine today is not consistent with a urinary tract infection. She declined pelvic exam. She elected self swab for BV. Will dc with cephalexin for folliculitis, Flagyl for potential BV and Diflucan for vaginal candidiasis. We will send testing for Trichomonas, gonorrhea, chlamydia and BV. She should follow-up with her primary care provider the emergency department for worsening symptoms. Patient in agreement plan of care. Level of Care: Express Care Visit Vital Signs Vital signs: Vital Signs Temperature 36.7 C 07/17/25 17:20 Pulse Rate 88 07/17/25 17:20 Respiratory Rate 18 07/17/25 17:20 Blood Pressure 175/95 H 07/17/25 17:20 Pulse Oximetry 100 07/17/25 17:20 Oxygen Delivery Room Air 07/17/25 17:20 Temperature 36.7 C 07/17/25 17:20 Pulse Rate 88 07/17/25 17:20 Respiratory Rate 18 07/17/25 17:20 Blood Pressure 175/95 H 07/17/25 17:20 Pulse Oximetry 100 07/17/25 17:20 Oxygen Delivery Room Air 07/17/25 17:20 Medical Decision Making Vital Signs Vital Signs: Vital Signs Temperature 36.7 C 07/17/25 17:20 Pulse Rate 88 07/17/25 17:20 Respiratory Rate 18 07/17/25 17:20 Blood Pressure 175/95 H 07/17/25 17:20 Pulse Oximetry 100 07/17/25 17:20 Oxygen Delivery Room Air 07/17/25 17:20 Temperature 36.7 C 07/17/25 17:20 Pulse Rate 88 07/17/25 17:20 Respiratory Rate 18 07/17/25 17:20 Blood Pressure 175/95 H 07/17/25 17:20 Pulse Oximetry 100 07/17/25 17:20 Oxygen Delivery Room Air 07/17/25 17:20 Discharge Plan Discharge Clinical Impression: Vaginitis, Folliculitis Patient Disposition: Home Condition: Stable Instructions: Antibiotic Form, Yeast Infection (ED), Folliculitis (ED) Patient Language: Mauritian Prescriptions: New cephalexin 500 mg capsule 500 mg PO Q8H Qty: 21 0RF fluconazole 150 mg tablet 150 mg PO ONCE Qty: 2 0RF Rx Instructions: as a single dose now and again at the completion of flagyl and cephalexin metronidazole 500 mg tablet 500 mg PO BID Qty: 14 0RF No Action lisinopril 20 mg tablet norethindrone (contraceptive) 0.35 mg tablet Follow-up/Referrals: Jaydon Niño MD [Physician, Family Practice] Time of Disposition: 18:30
[2025-07-17 18:38] LABS: EDUAAPPEAR Clear; EDUABILI Negative (Negative); EDUABLOOD Negative (Negative); EDUACOLOR1 Yellow; EDUAGLUCOSE Negative (Negative); EDUAKETONE Negative (Negative); EDUALEUKO Negative (Negative); EDUANITRATE Negative (Negative); EDUAPH 7.0; EDUAPROTEIN 1+ (Negative); EDUASPGRAVITY 1.025; EDUAUROBILI 0.2
[2025-07-18 20:25] LABS: Trichomonas Vag PCR NOT DETECTED (NOT DETECTE)
== END 2025-07-17 18:37 | disposition home or self-care (01) ==
PROVIDERS: Emergency Provider Nurse Practitioner
DX: N76.0 Acute vaginitis (principal); L73.9 Follicular disorder, unspecified; Z11.3 Encounter for screening for infections with a predominantly sexual mode of transmission
CPT/HCPCS: 81003; 87491; 87591; 87661; 87798; 99213; G0463

== ENCOUNTER 2025-10-08 11:51 | Emergency (ER) | payer OTHER, SELFPAY ==
--- OUTSIDE RECORDS SUMMARY | 2025-10-08 10:45 | XMS_ITS | Encounter Summary ---
Author Organization [facility] Address [address] [place] [address] Care Team Providers Care Template Checker Name Role Phone Andi Mckeon MD Primary Care Provider [phone] Reason for Referral * Consultation (Routine) - Authorized Specialty Diagnoses / Procedures Referred By Contac t Referred To Contact Sleep Medicine Diagnoses Morbid obesity with BMI of 45.0-49.9, adult (HCC) BMI 45.0-49.9, adult (HCC) Andi Mckeon MD [address] [place] [address] Phone: tel: fax: [facility] Sleep Medicine at [address] [place] [id number] Phone: tel: fax: Referral ID Status Reason Start Date Expiration Date Visits Requested Visits Authorized [id number] Authorized Specialty Services Required 11/07/2026 1 1 Question Answer Please select the performing region: [facility] [[id number]] Please select the performing department: [facility] [[id number]] # of visits: 1 TER PNEUMATIC Reason for Visit * Reason Comments Medication discussion Patient here to di scuss medication. Patient insurance does not cover GLP-1 unless have certain health conditions. Patient would like to know if other options that are out there. urinary issues Patient is having bu rning, little back pain when urinate. Encounter Details Date Type Department Care Team (Late st Contact Info) Description 10/08/2025 10:45 AM [facility] Office Visit [facility] [address] [place] [address] Andi Mckeon MD [address] [place] [address] Dysuria (Primary Dx); Fatigue, unspecified type; Snoring; Morbid obesity with BMI of 45.0-49.9, adult (HCC); BMI 45.0-49.9, adult (HCC) Social History Tobacco Use Types Packs/Day Years Used Date Smoking Tobacco: Former Smokeless Tobacco: Never Alcohol Use Standard Drinks/Week [...] week 03/27/2022 How often do you attend chur ch or anglican services? More than 4 times per year 03/27/2022 Do you belong to any clubs o r organizations such as alevism groups, unions, fraternal or athletic groups, or [...] and heating? Not hard at all 03/27/2022 PHQ-2 Answer Date Recorded PHQ-2 Total Score (If total score is 3 or more points, staff should administer the PHQ-9) 0 10/08/2025 Hunger Vital Sign Answer Date Recorded Within [...] place to sleep or slept in a alf (including now)? No 03/27/2022 [place] Depression Scale Answer Date Recorded [place] Depression Scale Total 1 12/30/2021 The thought of harming myself has occurred to me . Never 12/30/2021 Personal Safety Answer Date Recorded Have you ever been in or are you currently in a harmful physical or emotional relationship or is someone making you feel afraid or unsafe? Denies 09/10/2025 Comments No Sex and Gender Information Value Date Recorded Sex Assigned at Not on file Legal Sex Female 5:25 PM [facility] Gender Identity Not on file Sexual Orientation Not on file documented as of this encounter Last Filed Vital Signs Vital Sign Reading Time Taken Comments Blood Pressure 126/68 10/08/2025 10:38 AM [facility]NE[facility]IC Pulse 87 10/08/2025 10:38 AM [facility] PNE[facility]IC Temperature 36.7 C (98 F) 10/08/2025 10:38 AM [facility] PNEUMATIC Respiratory Rate 18 10/08/2025 10:38 AM [facility]ER PNEUMATIC Oxygen Saturation 99% 10/08/2025 10:38 AM [facility]ER PNEUMATIC room air Inhaled Oxygen Concentration - - Weight 121.6 kg (268 lb) 10/08/2025 10:38 AM [facility]NE[facility]IC Height 162.6 cm (5' 4) 10/08/2025 10:38 AM [facility] Body Mass Index 46 10/08/2025 10:38 AM [facility]IC documented in this encounter Functional Status * BP Location Answer Date of Assessment Author Left arm 10/08/2025 10:38 AM Shae North CMA * BP Location Answer Date of Assessment Author Left arm 10/08/2025 10:38 AM [facility] Shae Palmer CMA documented as of this encounter Ordered Prescriptions Prescription Sig Dispense Quantity Refills Last Filled Start Date End Date phentermine 15 mg capsule Take 1 capsule (15 mg total) by mouth every morning 30 capsule 10/08/2025 cephalexin (KEFLEX) 500 mg capsule Take 1 capsule (500 mg total) by mouth 2 (two) times a day for 7 days 14 capsule 10/08/2025 documented in this encounter Plan of Treatment Scheduled Orders Name Type Priority Associated Diagnoses Orde r Schedule Urinalysis reflex to microscopic and culture Urine Microbiology Routine Dysuria Expected: 10/08/2025, Expires: 10/08/2026 Scheduled Referrals Name Type Priority Associated Diagnoses Order Schedule Ambulatory referral to Sleep Medicine Outpatient Referral Routine Morbid obesity with BMI of 45.0-49.9, adult (HCC) BMI 45.0-49.9, adult (HCC) Expected: 10/22/2025 (Approximate), Expires: 10/08/2026 documented as of this encounter Visit Diagnoses Diagnosis Dysuria- Primary Fatigue, unspecified type Snoring Other dyspnea and respiratory abnormality Morbid obesity with BMI of 45.0-49.9, adult (HCC) BMI 45.0-49.9, adult (HCC) documented in this encounter Discontinued Medications Medication Sig Discontinue Reason Start Date End Da te cyclobenzaprine (FLEXERIL) 10 mg tablet Take 1 tablet (10 mg total) by mouth 2 (two) times a day as needed for muscle spasms Therapy completed 09/10/2025 10/08/[address] (CYMBALTA) 30 mg capsule Take 1 capsule (30 mg total) by mouth 2 (two) times a day Therapy completed 08/16/2025 10/08/2025 ibuprofen (ADVIL,MOTRIN) 600 mg tabletIndications:Cramps Take 1 tablet (600 mg total) by mouth every 6 (six) hours as needed for pain (Take with food) Therapy completed 09/27/2025 10/08/2025 lidocaine (LIDODERM) 5 % Place 1 patch on the skin daily for 12 hours Remove & discard patch(es) within 12 hours or as directed by Therapy completed 09/10/2025 10/08/2025 norethindrone (MICRONOR) 0.35 mg tabletIndications:Pregnan cy Contraception Take 1 tablet (0.35 mg total) by mouth daily 1 po qd at same time of day Therapy completed 09/03/2025 10/08/2025 vitamin ferrous fumarate-folic () 28 mg iron- 800 mcg tablet Take 1 tablet by mouth daily Therapy completed 01/08/2022 10/08/2025 semaglutide (Wegovy) 0.25 mg/0.5 mL auto-injector Inject 0.25 mg under the skin every 7 days Therapy completed 08/22/2025 10/08/2025 tirzepatide (Mounjaro) 2.5 mg/0.5 mL pen injector injection Inject 0.5 mL (2.5 mg total) under the skin every 7 days Dx; z68.42 Therapy completed 08/21/2025 10/08/2025 documented as of this encounter Care Teams Template Checker Relationship Specialty Start Date End Date Andi Mckeon MD [address] [place] [address] PCP - General Family Medicine 08/16/25 documented as of this encounter
[2025-10-08 12:07] VITALS: BP 143/83; PULSE 86; RESP 20; TEMP 36.5; O2SAT 98
--- OUTSIDE RECORDS SUMMARY | 2025-10-08 12:26 | XMS_ITS | Encounter Summary ---
Author Organization [facility] Address [address] [place] [address] Phone Care Team Providers Care Freight Router Name Role Phone No, Physician Primary Care Provider [phone] Ruthie Duran MD Primary Care Provider Andi Mckeon MD Primary Care Provider [phone] Encounter Details Date Type Department Care Team (Latest Contact Info) Description 02/03/2018 Orders Only [facility] CONVERSION Scanning, Provider Social History Tobacco Use Types Packs/Day Years Used Date Smoking Tobacco: Former Comments Yes Sex and Gender Information Value Date Recorded Sex Assigned at Not on file Legal Sex Female 5:25 PM [employer] Gender Identity Not on file Sexual Orientation [...] COVID: Suspected 10/31/2021 10/31/2021 11/01/2021 10:21 AM [employer] COVID19 10/31/2021 10/31/2021 11/10/2021 3:05 AM [employer] COVID: Recovered Comment:Added based on recent COVID infection. 11/10/2021 11/11/2021 03/10/2022 3:05 AM C DT documented as of this encounter Care Teams Freight Router Relationship Specialty Start Date End Date No, Physician PCP - General 08/19/17 10/28/23 Ruthie Duran MD [address] [place] [address] [address] [place] [id number] PCP - General Family Medicine 10/29/23 08/15/25 Andi Mckeon MD [address] [place] [address] PCP - General Family Medicine 08/16/25 documented as of this encounter
--- OUTSIDE RECORDS SUMMARY | 2025-10-08 12:26 | XMS_ITS | Clinical Summary ---
Author Organization [facility] Address [address] [place] [address] Phone Care Team Providers Care Transportation Museum Helper Name Role Phone Ruthie Duran MD Primary Care Provider Allergies Active Allergy Reactions Criticality Noted Date Comments Sulfa Antibiotics Hives 05/29/2016 Medications ondansetron (ZOFRAN) 4 MG Tablet Take 1-2 Tabs by mouth every 8 hours as needed for Nausea - 1st line. 15 Tab 9 Active HYDROcodone-kecia taminophen (NORCO) 5-325 MG TabletIndicatio ns:Infected dental caries Take 1 Tablet by mouth every 8 hours as needed for Moderate or more severe pain or Severe pain. 12 Tablet 1 Active Additional Information Patient not taking.Reported on 08/31/2025 HYDROcodone-kecia taminophen (NORCO) 5-325 MG TabletIndicatio ns:Infected dental caries Take 1 Tablet by mouth every 8 hours as needed for Severe pain. 12 Tablet 1 Active Additional Information Patient not taking.Reported on 08/31/2025 Vit-Fe Fumarate-FA ( VITAMINS PO) Take by mouth. Ac tive hydrOXYzine (VISTARIL) 25 MG CapsuleIndicati ons:Anxiety Take 1 Capsule by mouth 3 times daily as needed for Anxiety. Indications: Feeling Anxious 30 Capsule 5 Active Clindamycin HCl (CLEOCIN) 300 MG Capsule Take 1 Capsule by mouth every 6 hours for 10 days. 40 Capsule 5 09/10/20 25 Active Problems No known active problems Encounters Date Type Department Care Team Description 08/31/2025 9:32 PM RN CARDIAC REHAB - 08/31/2025 11:52 PM RN CARDIAC REHAB Emergency [facility] Emergency [address] [place] [address] Francisco Chapman MD Dental abscess Discharge Disposition: Discharged to home or Selfcare 08/31/2025 Travel 07/31/2025 4:28 PM CDT - 07/31/2025 9:42 PM CDT Emergency [facility] Emergency [address] [place] [address] MD Keen, Sully Puga, SUPERVISOR CUTTING AND SEWING ROOM, FISH ROE TECHNICIAN Acute nonintractable headache, unspecified headache type Discharge Disposition: Discharged to home or Selfcare 07/31/2025 Travel from Last 3 Months Immunizations Immunization Administration Dates Next Due DTP [...] Sign Reading Time Taken Comments Blood Pressure 131/83 08/31/2025 11:51 PM RN CARDIAC REHAB Pulse 80 08/31/2025 11:51 PM RN CARDIAC REHAB Temperature 36.2 C (97.2 F) 08/31/2025 9:45 PM RN CARDIAC REHAB Respiratory Rate 18 08/31/2025 11:51 PM RN CARDIAC REHAB Oxygen Saturation 100% 08/31/2025 11:51 PM RN CARDIAC REHAB Inhaled Oxygen Concentration - - Weight 119.7 kg (264 lb) 08/31/2025 9:45 PM RN CARDIAC REHAB Height 162.6 cm (5' 4) 08/31/2025 9:45 PM RN CARDIAC REHAB Body Mass Index 45.32 08/31/2025 9:45 PM RN CARDIAC REHAB Plan of Treatment Health Maintenance Due Date Last Done Comments Hepatitis C Virus (HCV) Screening 1990 Hepatitis B Immunization (3 of 3 - 3-dose series) 07/27/2000 06/01/2000, 07/16/1999 Varicella Immunization (1 of 2 - 13+ 2-dose series) 2002 HPV/Cotest 2019 Cervical Cancer Screening (CCS) 11/13/2019 Pap Smear 11/13/2019 11/13/2016 Influenza Immunization (#1) 2025 08/30/2006 SARS-COV-2 Immunization ( season) 2025 DTaP/Tdap/Td Immunization (10 - Td or Tdap) 08/08/2035 08/08/2025, 03/20/2022, 01/31/2018, Additional history exists Respiratory Syncytial Virus (RSV) Immunization (Adult) (1 - 1-dose 75+ series) 2064 TdaP Immunization Discontinued 08/08/2025, , 01/31/2018, Additional history exists Human Papillomavirus (HPV) Immunization (No Doses Required) Completed Meningococcal Immunization (ACWY) Aged Out No longer eligible based on patient's age to complete this topic Pneumococcal Immunization Combined Aged Out No longer eligible based on patient's age to complete this topic Rotavirus Immunization Aged Out No lo nger eligible based on patient's age to complete this topic Procedures Procedure Name Priority Date/Time Associated Diagnosis Comments GOLD TOP TUBE STAT 07/31/2025 8:08 PM CDT BLUE TOP TUBE STAT 07/31/2025 8:08 PM CDT CBC WITH AUTO DIFFERENTIAL STAT 07/31/2025 8:08 PM CDT EXTRA TUBES STAT 07/31/2025 8:08 PM CDT BASIC METABOLIC PANEL W/ CALCIUM TOTAL STAT 07/31/2025 8:08 PM CDT COMPLETE BLOOD COUNT (CBC) WITH DIFF STAT 07/31/2025 8:[address] HEAD OR BRAIN WO CONTRAST Stat with Interpretation 07/31/2025 7:56 PM CDT EKG 12 LEAD STAT 07/31/2025 7:19 PM CDT XR CHEST 2 VIEWS STAT 07/31/2025 4:34 PM CDT RSV,SARS-COV-2,INF LUENZA A&B BY PCR STAT 07/31/2025 2:55 PM CDT GROUP A STREP BY PCR STAT 07/31/2025 2:55 PM CDT EKG SCAN 07/31/2025 12:[address] - HEAD/NECK 07/31/2025 12:00 AM CDT PATHOLOGY CYTOLOGY TIE UP WORKER Routine 11/13/2016 from Last 3 Months or Most Recently Relevant to Health Maintenance Results * Gold Top Tube (07/31/2025 8:08 PM CDT) Blood No Phlebotomy Charged / Unknown 07/31/2025 8:08 PM CDT 07/31/2025 8:30 PM CDT us Rhett St MD CHEMISTRY ORDERABLES Final Result [facility] [place] [address] * Blue Top Tube (07/31/2025 8:08 PM CDT) Blood No Phlebotomy Charged / Unknown 07/31/2025 8:08 PM CDT 07/31/2025 8:30 PM CDT us Rhett St MD HEMATOLOGY ORDERABLE S Final Result [facility] [address] [place] [address] * (ABNORMAL) CBC with Auto Differential (07/31/2025 8:08 PM CDT) WBC 10.99 4.00 - 12.00 10(3)/mcL 07/31/2025 8:35 PM CDT [facility] RBC 4.79 3.80 - 5.30 10(6)/mcL 07/31/2025 8:35 PM CDT [facility] HEMOGLOBIN (HGB) 13.9 12.0 - 15.8 g/dL 07/31/2025 8:35 PM CDT [facility] HEMATOCRIT (HCT) 40.1 36.0 - 47.0 % 07/31/2025 8:35 PM CDT [facility] MCV 83.7 82.0 - 96.0 fL 07/31/2025 8:35 PM CDT [facility] MCH 29.0 26.0 - 34.0 pg 07/31/2025 8:35 PM CDT [facility] MCHC 34.7 31.0 - 36.0 g/dL 07/31/2025 8:35 PM CDT [facility] PLATELET COUNT 388 140 - 440 10(3)/mcL 07/31/2025 8:35 PM CDT [facility] RDW 12.2 11.8 - 15.5 % 07/31/2025 8:35 PM CDT [facility] MPV 9.9 9.7 - 12.4 fL 07/31/2025 8:35 PM CDT [facility] NEUTROPHILS 73.0 47.0 - 73.0 % 07/31/2025 8:35 PM CDT [facility] LYMPHOCYTES 21.2 18.0 - 42.0 % 07/31/2025 8:35 PM CDT [facility] MONOCYTES 4.1 4.0 - 12.0 % 07/31/2025 8:35 PM CDT [facility] EOSINOPHILS 0.9 0.0 - 5.0 % 07/31/2025 8:35 PM CDT [facility] BASOPHILS 0.5 0.0 - 1.0 % 07/31/2025 8:35 PM CDT [facility] IMMATURE GRANULOCYTE 0.3 0.0 - 0.4 % 07/31/2025 8:35 PM CDT [facility] ABSOLUTE NEUTROPHILS 8.02(H) 1.60 - 7.70 10(3)/mcL 07/31/2025 8:35 PM CDT [facility] ABSOLUTE LYMPHOCYTES 2.33 1.30 - 3.20 10(3)/mcL 07/31/2025 8:35 PM CDT [facility] ABSOLUTE MONOCYTES 0.45 0.20 - 1.00 10(3)/mcL 07/31/2025 8:35 PM CDT [facility] ABSOLUTE EOSINOPHIL 0.10 0.00 - 0.40 10(3)/mcL 07/31/2025 8:35 PM CDT [facility] ABSOLUTE BASOPHILS 0.06 0.00 - 0.10 10(3)/mcL 07/31/2025 8:35 PM CDT [facility] ABSOLUTE IMMATURE GRANULOCYTE 0.03 0.00 - 0.03 10 (3) mcL. 07/31/2025 8:35 PM CDT [facility] NRBC PER 100 WBC 0 07/31/20 8:35 PM CDT [facility] Blood Venipuncture / Unknown 07/31/2025 8:08 PM CDT 07/31/2025 8:32 PM CDT us Rhett St MD HEMATOLOGY ORDERABLE S Final Result [facility] [place] [address] * (ABNORMAL) BMP w/ Ca (07/31/2025 8:08 PM CDT) SODIUM 141 136 - 145 mmol/L 07/31/2025 8:50 PM CDT [facility] POTASSIUM 3.4(L) 3.5 - 5.1 mmol/L 07/31/2025 8:50 PM CDT [facility] CHLORIDE 106 98 - 107 mmol/L 07/31/2025 8:50 PM CDT [facility] CO2, VENOUS 22 22 - 30 mmol/L 07/31/2025 8:50 PM CDT [facility] ANION GAP 16.4 <18.0 mmol/L 07/31/2025 8:50 PM CDT [facility] GLUCOSE 90 70 - 99 mg/dL 07/31/2025 8:50 PM CDT [facility] BUN 10 5 - 18 mg/dL 07/31/2025 8:50 PM CDT [facility] CREATININE, BLOOD 0.73 0.60 - 1.00 mg/dL 07/31/2025 8:50 PM CDT [facility] BUN/CREATININE RATIO 14 12 - 20 ratio 07/31/2025 8:50 PM CDT [facility] CALCIUM 9.6 8.7 - 10.5 mg/dL 07/31/2025 8:50 PM CDT [facility] GFR, ESTIMATED >60 >=60 07/31/2025 8:50 PM CDT [facility] Comment: Creatinine Clearance is the preferred criteria for selecting drug dose adjustments in renally impaired patients. The GFR is provided as additional pertinent clinical information. GFR is reported in mL/min/1.73 sq m. Calculation based on the 2020 Chronic Kidney Disease Epidemiology Collaboration (CKD-EPI) equation refit without adjustment for race. GFR, EST. >60 >=60 025 8:50 PM CDT [facility] Comment: Creatinine Clearance is the preferred criteria for selecting drug dose adjustments in renally impaired patients. The GFR is provided as additional pertinent clinical information. GFR is reported in mL/min/1.73 sq m. Calculation based on the 2009 Chronic Kidney Disease Epidemiology Collaboration (CKD-EPI). GFR, EST. NONAFRICAN >60 >=60 07/31/2025 8:50 PM CDT [facility] Comment: Creatinine Clearance is the preferred criteria for selecting drug dose adjustments in renally impaired patients. The GFR is provided as additional pertinent clinical information. GFR is reported in mL/min/1.73 sq m. Calculation based on the 2009 Chronic Kidney Disease Epidemiology Collaboration (CKD-EPI). Blood Venipuncture / Unknown 07/31/2025 8:08 PM CDT 07/31/2025 8:32 PM CDT us Rhett [address] MD CHEMISTRY ORDERABLES Final Result [facility] [place] [address] * CT HEAD OR BRAIN WO CONTRAST (07/31/2025 7:56 PM CDT) Anatomical Region Laterality Modality Head N/A Computed Tomogra phy 07/31/2025 7:56 PM CDT Impressions 08/01/2025 7:00 AM CDT IMPRESSION: 1. No acute intracranial abnormality by CT criteria. 2. Numerous dental caries involving the inability. Recommend dental consultation. The preliminary report and any related communication were provided by [facility]'s After Hours service, as documented in the medical record. Narrative 08/01/2025 7:00 AM CDT DICTATING PHYSICIAN: Rashid Ivey D.O. EXAM: CT HEAD OR BRAIN WO CONTRAST, 07/31/2025 7:56 PM COMPARISON: None HISTORY: Headache, new or worsening, neuro deficit (Age 18-49y), c/o headache & elevated BP today. HX HTN. PROCEDURE: Utilizing 2.5 mm collimation in the posterior fossa and 2.5 mm collimation in the supratentorial compartment, contiguous axial tomographic images were obtained from the skullbase to the cranial vertex. Dose reduction technique(s) utilized. [id number] FINDINGS: No acute intracranial hemorrhage. There is no visualized mass, mass-effect, midline shift or abnormal extra-axial fluid collections. There is no CT evidence of acute infarct, although MRI has a higher sensitivity and specificity for acute and hyperacute ischemia. The beckford-white matter differentiation is preserved. The visualized brainstem and cerebellum are normal. The ventricles are not enlarged. The basal cisterns are patent. There are no destructive bone lesions or calvarial fracture. The visualized paranasal sinuses, middle ear cavities and mastoid air cells are well aerated. There is no abnormality in the visualized portions of the orbits and globes. Numerous dental caries. Procedure Note Rashid Ivey, DO - 08/01/2025 DICTATING PHYSICIAN: Rashid Ivey D.O. EXAM: CT HEAD OR BRAIN WO CONTRAST, 07/31/2025 7:56 PM COMPARISON: None HISTORY: Headache, new or worsening, neuro deficit (Age 18-49y), c/oheadache & elevated BP today. HX HTN. PROCEDURE: Utilizing 2.5 mm collimation in the posterior fossa and 2.5 mmcollimation in the supratentorial compartment, contiguous axialtomographic images were obtained from the skullbase to the cranial vertex.Dose reduction technique(s) utilized. [id number]=[id number] FINDINGS: No acute intracranial hemorrhage. There is no visualized mass,mass-effect, midline shift or abnormal extra-axial fluid collections.There is no CT evidence of acute infarct, although MRI has a highersensitivity and specificity for acute and hyperacute ischemia. Thegray-white matter differentiation is preserved. The visualized brainstemand cerebellum are normal. The ventricles are not enlarged. The basalcisterns are patent. There are no destructive bone lesions or calvarial fracture. Thevisualized paranasal sinuses, middle ear cavities and mastoid air cellsare well aerated. There is no abnormality in the visualized portions ofthe orbits and globes. Numerous dental caries. IMPRESSION: 1. No acute intracranial abnormality by CT criteria. 2. Numerous dental caries involving the inability. Recommend dentalconsultation. The preliminary report and any related communication [facility], as documented in the medical record. Rhett St MD IMG CT ORDERABLES Fi nal Result * EKG 12 LEAD (07/31/2025 7:19 PM CDT) Ventricular Rate 82 BPM EXTERNAL EKG Atrial Rate 82 BPM EXTERNAL EKG P-R Interval 150 ms EXTERNAL EKG QRS Duration 90 ms EXTERNAL EKG Q-T Duration 382 ms EXTERNAL EKG QTC CALCULATION 446 ms EXTERNAL EKG P [place] 47 degrees EXTERNAL EKG R [place] 40 degrees EXTERNAL EKG T [place] 31 degrees EXTERNAL EKG 07/31/2025 7:19 PM CDT Impressions EXTERNAL EKG - 08/03/2025 10:20 PM CDT Normal sinus rhythm Normal ECG When compared with ECG of 31-OCT-2021 20:40, Normal sinus rhythm has replaced Sinus tachycardia Confirmed by Gillian Joy ([id number]) on 08/03/2025 10:20:37 PM Narrative Procedure Note Gillian Joy MD PhD - 08/03/2025 IMPRESSION: Normal sinus rhythm Normal ECG When compared with ECG of 31-OCT-2021 20:40, Normal sinus rhythm has replaced Sinus tachycardia Confirmed by Gillian Joy ([id number]) on 08/03/2025 10:20:[address] MD IMG ECG ORDERABLES F inal Result EXTERNAL EKG * XR CHEST 2 VIEWS (07/31/2025 4:34 PM CDT) Anatomical Region Laterality Modality Chest N/A Digital Radiogra phy 07/31/2025 4:34 PM CDT Impressions 07/31/2025 4:40 PM CDT IMPRESSION: No acute cardiopulmonary findings. Narrative 07/31/2025 4:40 PM CDT DICTATING PHYSICIAN: Betito Chavarria M.D., [facility] EXAM: XR CHEST 2 VIEWS 07/31/2025 4:34 PM Patient : 1990 Age: 35 years Gender: Female INDICATION: c/o headache and elevated BP, new BP meds started 6 mo ago. pt denies chest pain and SOB COMPARISON: None TECHNIQUE: PA and lateral radiographs of the chest. NUMBER OF IMAGES \ views: 2 FINDINGS: Lines/tubes/devices: None. Cardiac silhouette: The cardiac silhouette is within normal limits for size. Lungs: No focal consolidation. 2 small rounded calcifications within the right upper lobe are most likely due to old granulomas. Pleura: No effusion or pneumothorax. Osseous structures/soft tissues: Unremarkable. Upper abdomen: Unremarkable. Procedure Note Betito Bonilla MD - 07/31/2025 DICTATING PHYSICIAN: Betito Chavarria M.D., [facility] EXAM: XR CHEST 2 VIEWS 07/31/2025 4:34 PM Patient : 1990 Age: 35 years Gender: Female INDICATION: c/o headache and elevated BP, new BP meds started 6 mo ago. ptdenies chest pain and SOB COMPARISON: None TECHNIQUE: PA and lateral radiographs of the chest. NUMBER OF IMAGES \ views: 2 FINDINGS: Lines/tubes/devices: None. Cardiac silhouette: The cardiac silhouette is within normal limits forsize. Lungs: No focal consolidation. 2 small rounded calcifications within theright upper lobe are most likely due to old granulomas. Pleura: No effusion or pneumothorax. Osseous structures/soft tissues: Unremarkable. Upper abdomen: Unremarkable. IMPRESSION: No acute cardiopulmonary findings. Sully Pugh SUPERVISOR CUTTING AND SEWING ROOM, FISH ROE TECHNICIAN IMG DIAGNOSTIC ORD ERABLES Final Result * GROUP A STREP BY PCR (07/31/2025 2:55 PM CDT) GROUP A STREP BY PCR NOT DETECTED NOT DETECTED 07/31/2025 3:58 PM CDT [facility] Swab STRUCTURE OF ANTERIOR REGION OF NECK / Unknown Non-Phlebotomy Collection / Unknown 07/31/2025 2:55 PM CDT 07/31/2025 3:25 PM CDT us Sully Pugh APRN, CROW MICROBIOLOGY - GEN ERAL ORDERABLES Final Result Performing Organization Address City/[facility]/ZIP Co de Phone Number [facility] [place] [address] * RSV,SARS-COV-2,INFLUENZA A&B BY PCR (07/31/2025 2:55 PM CDT) FLU A Negative Negative, Error 07/31/2025 4:10 PM CDT [facility] FLU B Negative Negative 07/31/2025 4:10 PM CDT [facility] RESP SYNC VIRUS Negative Negative 4:10 PM CDT [facility] SARSCOV2 NOT DETECTED (Reference Range for this test is Not Detected) 07/31/2025 4:10 PM CDT [facility] Comment:This test was perfor med by a Reverse Physical Sciences Professor PCR Method. Nasal NASOPHARYNGEAL SWAB / Unknown Non-Phlebotomy Collection / Unknown 07/31/2025 2:55 PM CDT 07/31/2025 3:25 PM CDT Sully Pugh APRN, CROW MICROBIOLOGY - GEN ERAL ORDERABLES Final Result Performing Organization Address [facility] Co de Phone Number [facility] [place] [address] * EKG SCAN (07/31/2025 12:00 AM CDT) 07/31/2025 us Provider Scan IMG ECG ORDERABLES Final Result RESULTING AGENCY * CT - HEAD/NECK (07/31/2025 12:00 AM CDT) 07/31/2025 us Provider Scan IMG CT ORDERABLES Final Result SCAN * PATHOLOGY CYTOLOGY TIE UP WORKER (11/13/2016) Specimen of unknown material (specimen) Negra Gonzalez PAC PATHOLOGY/CYTOLOGY ORDERA BLES Final Result from Last 3 Months or Most Recently Relevant to Health Maintenance Insurance [employer] Care Teams Transportation Museum Helper Relationship Specialty Start Date End Date Ruthie Duran MD [address] [place] [address] [address] LEROY [address] [place], [place] [address], [place] [address] PCP - General Family Medicine 05/21/24
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
--- OUTSIDE RECORDS SUMMARY | 2025-10-08 12:26 | XMS_ITS | Encounter Summary ---
Author Organization [facility] Address [address] [place] [address] Phone Care Team Providers Care Water Regulator And Valve Repairer Name Role Phone No, Physician Primary Care Provider [phone] Ruthie Duran MD Primary Care Provider Andi Mckeon MD Primary Care Provider [phone] Encounter Details Date Type Department Care Team (Latest Contact Info) Description 12/06/2017 Orders Only [facility] CONVERSION Scanning, Provider Social History Tobacco Use Types Packs/Day Years Used Date Smoking Tobacco: Unknown Comments Yes Sex and Gender Information Value Date Recorded Sex Assigned at Not on file Legal Sex Female 5:25 PM STRAP SETTER Gender Identity Not on file Sexual Orientation Not on file documented as of this encounter Plan of Treatment Not on file documented as of this encounter Procedures Procedure Name Priority Date/Time Associated Diagnosis Comments OBSTETRIC/GYNECOLOGY ULTRASONOGRAPHY REPORT 01/03/2018 2:42 PM CDT OBSTETRIC/GYNECOLOGY ULTRASONOGRAPHY REPORT 12/06/2017 5:04 PM STRAP SETTER documented in this encounter Results * OBSTETRIC/GYNECOLOGY ULTRASONOGRAPHY REPORT (01/03/2018 2:42 PM CDT) Anatomical Region Laterality Modality Ultrasound us Provider Scanning IMG OB US PROCEDURES Final Res ult * OBSTETRIC/GYNECOLOGY ULTRASONOGRAPHY REPORT (12/06/2017 5:04 PM STRAP SETTER) Anatomical Region Laterality Modality Ultrasound us Provider Scanning IMG OB US PROCEDURES Final Res ult documented in this encounter Visit Diagnoses Not on filedocumented in this encounter Additional Health Concerns Infection Onset Date Last Indicated Resolved Time COVID: Suspected 10/31/2021 10/31/2021 11/01/2021 10:21 AM STRAP SETTER COVID19 10/31/2021 10/31/2021 11/10/2021 3:05 AM STRAP SETTER COVID: Recovered Comment:Added based on recent COVID infection. 11/10/2021 11/11/2021 03/10/2022 3:05 AM C DT documented as of this encounter Care Teams Water Regulator And Valve Repairer Relationship Specialty Start Date End Date No, Physician PCP - General 08/19/17 10/28/23 Ruthie Duran MD [address] [place] [address] [place], [place] [address] [address] PCP - General Family Medicine 10/29/23 08/15/25 Andi cMkeon MD [address] [place] [address] PCP - General Family Medicine 08/16/25 documented as of this encounter
--- OUTSIDE RECORDS SUMMARY | 2025-10-08 12:26 | XMS_ITS | Encounter Summary ---
Author Organization [facility] Address [address] [place] [address] Phone Care Team Providers Care Incident Engineer Name Role Phone No, Physician Primary Care Provider [phone] Ruthie Duran MD Primary Care Provider Andi Mckeon MD Primary Care Provider [phone] Encounter Details Date Type Department Care Team (Latest Contact Info) Description 10/19/2017 Orders Only [facility] CONVERSION Scanning, Provider Social History Tobacco Use Types Packs/Day Years Used Date Smoking Tobacco: Unknown Comments Yes Sex and Gender Information Value Date Recorded Sex Assigned at Not on file Legal Sex Female 5:25 PM MERCHANDISE CLERK Gender Identity Not on file Sexual Orientation Not on file documented as of this encounter Plan of Treatment Not on file documented as of this encounter Procedures Procedure Name Priority Date/Time Associated Diagnosis Comments OBSTETRIC/GYNECOLOGY ULTRASONOGRAPHY REPORT 11/15/2017 3:22 PM MERCHANDISE CLERK OBSTETRIC/GYNECOLOGY ULTRASONOGRAPHY REPORT 10/19/2017 3:37 PM MERCHANDISE CLERK documented in this encounter Results * OBSTETRIC/GYNECOLOGY ULTRASONOGRAPHY REPORT (11/15/2017 3:22 PM MERCHANDISE CLERK) Anatomical Region Laterality Modality Ultrasound us Provider Scanning IMG OB US PROCEDURES Final Res ult * OBSTETRIC/GYNECOLOGY ULTRASONOGRAPHY REPORT (10/19/2017 3:37 PM MERCHANDISE CLERK) Anatomical Region Laterality Modality Ultrasound us Provider Scanning IMG OB US PROCEDURES Edited Re sult - Final documented in this encounter Visit Diagnoses Not on filedocumented in this encounter Additional Health Concerns Infection Onset Date Last Indicated Resolved Time COVID: Suspected 10/31/2021 10/31/2021 11/01/2021 10:21 AM MERCHANDISE CLERK COVID19 10/31/2021 10/31/2021 11/10/2021 3:05 AM MERCHANDISE CLERK COVID: Recovered Comment:Added based on recent COVID infection. 11/10/2021 11/11/2021 03/10/2022 3:05 AM C DT documented as of this encounter Care Teams Incident Engineer Relationship Specialty Start Date End Date No, Physician PCP - General 08/19/17 10/28/23 Ruthie Duran MD [address] [place] [address] [place], [place] [address], [place] [address] PCP - General Family Medicine 10/29/23 08/15/25 Andi Mckeon MD [address] [place] [address] PCP - General Family Medicine 08/16/25 documented as of this encounter
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
--- NOTE | 2025-10-08 12:55 | ED_ITS ---
HPI - Female Genitourinary General Chief complaint: Urogenital-Female Stated complaint: Urinary Problem Source: patient, RN notes reviewed and old records reviewed Mode of arrival: ambulatory Limitations: no limitations History of Present Illness HPI Narrative: 35 YEAR OLD FEMALE WHO PRESENTS TO [facility] CARE WITH COMPLAINTS OF SOME BURNING WITH URINATION FOR THE PAST 3 DAY WITH NO VAGINAL DISCHARGE BUT HAS SIMILAR SYMPTOMS THAT SHE HAD 8 WEEKS AGO WHEN SHE FOUND OUT SHE HAD CHLAMYDIA. PATIENT REPORTS NO VAGINAL DISCHARGE OR ANY BLEEDING. PATIENT REPORTS THAT SHE HAD INTERCOURSE 1 MONTH AGO AND CONDOM BROKE AND WANTS TO BE RETESTED MD elicited complaint: UTI Pertinent past history: other (TREATED FOR STD 2 MONTH AGO) Onset (ago): day(s) (3) Location of symptoms: urethra Severity scale (1-10): 2 Vaginal discharge: none Vaginal bleeding: none Sexual activity: Yes Related Data Home Medications ?Medication ?Instructions ?Recorded ?Confirmed ?Last Taken ?Type lisinopril 20 mg tablet mg 07/17/25 Unknown History norethindrone (contraceptive) 0.35 mg 07/17/25 Unknow n History mg tablet semaglutide (weight loss) 0.25 mg subcut 10/08/25 Unk nown History mg/0.5 mL subcutaneous pen injector (Wegovy) Allergies Allergy/AdvReac Type Severity Reaction Status Date / Time pseudoephedrine (From Allergy Hives Verified 10/08/25 12:06 Sudafed) Sulfa (Sulfonamide Allergy Rash Verified 10/08/25 12:06 Antibiotics) Review of Systems Review of Systems: CONSTITUTIONAL: Denies fever, chills, or sweats. CARDIOVASCULAR: Denies chest pain, palpitations, or edema. RESPIRATORY: Denies cough or dyspnea. GASTROINTESTINAL: Denies abdominal pain, nausea, vomiting, or diarrhea. GENITOURINARY: Reports dysuria, frequency, urgency. Denies flank pain or hematuria. SKIN: Denies rash or itching. MUSCULOSKELETAL: Denies back pain or myalgia. Denies CVA tenderness NEUROLOGIC: Denies headache All systems reviewed & are unremarkable except as noted in HPI and below PMFSH Past Medical History Medical History Hypertension Surgical History Surgical History History of appendectomy Family History Family History Mother Family history non-contributory Social History Social History Smoking status: Never smoker Alcohol intake: current Alcohol use details: rare Substance use type: does not use Living arrangements: with family Gender identity (if verbalized by the patient): Female Comments At time of signature, agree with nursing past medical, surgical, social and family history. There is no relevant family history pertinent to the presenting complaint Exam Narrative: GENERAL: Well-appearing, well-nourished, and in no acute distress. HEAD: Normocephalic, atraumatic. NECK: Supple. CHEST: Clear to auscultation. No respiratory distress.SAO2 98% ON ROOM AIR HEART: Regular rate and rhythm. No murmur heard. Normal peripheral pulses. ABDOMEN: Soft, nontender, nondistended, normal active bowel sounds. No CVA tenderness BURNING WITH URINATION AND SOME ITCHING NO VAGINAL DISCHARGE EXTREMITIES: Normal range of motion. No edema. SKIN: Warm, dry, no rash. NEURO: No focal deficits. Alert and oriented x3. Course Course Level of Care: Express Care Visit Vital Signs Vital signs: Vital Signs Temperature 36.5 C 10/08/25 12:07 Pulse Rate 86 10/08/25 12:07 Respiratory Rate 20 10/08/25 12:07 Blood Pressure 143/83 H 10/08/25 12:07 Pulse Oximetry 98 10/08/25 12:07 Oxygen Delivery Room Air 10/08/25 12:07 Temperature 36.5 C 10/08/25 12:07 Pulse Rate 86 10/08/25 12:07 Respiratory Rate 20 10/08/25 12:07 Blood Pressure 143/83 H 10/08/25 12:07 Pulse Oximetry 98 10/08/25 12:07 Oxygen Delivery Room Air 10/08/25 12:07 REVIEWED MDM MDM Narrative Medical decision making narrative: 35 YEAR OLD FEMALE WITH COMPLAINTS OF SOME URINARY BURNING AND ITCHING FOR THE PAST 3 DAYS. PATIENT REPORTS THAT SHE WAS TREATED FOR CHLAMYDIA 8 WEEKS AGO AND WAS TOLD TO GET RETESTED AFTER TREATED AND SHE IS HAVING SIMILAR SYMPTOMS BEFORE. SHE REPORTS THAT SHE DID HAVE INTERCOURSE 1 MONTH AGO AND CONDOM RUPTURED.PATIENT REPORTS NO FEVERS CHILLS OR SWEATS DENIES ANY NAUSEA OR VOMITING PATIENT TREATED FOR UTI WITH MACROBID AND URINE STD'S SENT WITH PATIENT TO BE NOTIFIED OF RESULTS. ANTICIPATORY GUIDANCE. PATIENT INSTRUCTED ON REASONS TO SEEK CARE IN THE ED WITH UNDERSTANDING VOICED. Differential Diagnosis Differential Diagnosis: Differential diagnostic considerations for female urogenital? issues include urinary tract infection, bacterial vaginosis, cervicitis, ovarian cyst, vaginitis, STI exposure, ovarian torsion, ectopic , cyst of Bartholin?s gland, cystitis, dysmenorrhea.??SCREENING FOR STD Lab Data MDM Lab Attestation statement: I personally reviewed the patient's lab results. Lab results narrative: URINE DIP: YELLOW AND CLOUDY URINE WITH LEUKOCYTES TRACE URINE CULTURE SENT URINE FOR std SENT FOR GONORRHEA, CHLAMYDIA, TRICHOMONAS Labs: Lab Results 10/08/25 10/08/25 Range/Units 12:22 13:28 POC Urine Color Yellow POC Urine Clarity Cloudy POC Urine pH 6.0 POC Ur Specif [place] 1.025 POC Urine Protein Negative (Negative) POC Ur Glucose (UA) Negative (Negative) POC Urine Ketones Negative (Negative) POC Urine Blood Negative (Negative) POC Urine Nitrite Negative (Negative) POC Urine Bilirubin Negative (Negative) POC Urine Urobilinogen 0.2 POC U Leukocyte Esteras Trace (Negative) C. trachomatis (PCR) Not detected (NOT DETECTE) N. gonorrhoeae (PCR) Not detected (NOT DETECTE) T. vaginalis (PCR) Not detected (NOT DETECTE) Critical Care Time Critical Care Time Critical Care Time: No Discharge Plan Discharge Clinical Impression: Screen for STD (sexually transmitted disease) UTI (urinary tract infection) Qualifiers: Urinary tract infection type: site unspecified Hematuria presence: without hematuria Qualified Code(s): N39.0 - Urinary tract infection, site not specified Patient Disposition: Home Condition: Stable Instructions: Antibiotic Form, Sexually Transmitted Diseases (ED), Urinary Tract Infection in Women (ED) Additional Instructions: INCREASE FLUIDS ESPECIALLY CRANBERRY JUICE AND WATER AVOID CAFFEINE AND CARBONATED BEVERAGES ANTIBIOTIC DIRECTED TYLENOL/IBUPROFEN FOR PAIN OR FEVER FOLLOW-UP WITH HER PRIMARY CARE PROVIDER IF FURTHER PROBLEMS OR CONCERNS RECHECK IF YOU HAVE FEVER OVER 101, NAUSEA AND VOMITING. URINE FOR STD SENT YOU WILL BE NOTIFIED OF TEST RESULTS PLEASE ABSTAIN FROM SEXUAL ENCOUNTER UNTIL RESULTS AND THEN IF POSITIVE MUST ABSTAIN FROM SEX FOR 2 WEEKS AFTER TREATMENT DONE PRACTICE SAFE SEX PRACTICES USE CONDOMS IF YOUR SYMPTOMS PERSIST, CHANGE OR WORSEN SIGNIFICANTLY BEFORE YOU CAN CONTACT YOUR PERSONAL PHYSICIAN THEN PLEASE, WITHOUT DELAY, GO TO THE EMERGENCY DEPARTMENT FOR FURTHER EVALUATION. FOLLOW-UP WITH PCP IN 7-10 DAYS OR SOONER IF NEEDED FOLLOW UP WITH PCP SOON IN REGARDS TO YOUR BLOOD PRESSURE WHICH IS ELEVATED ABOVE THRESHOLD FOR REFERRAL. BLOOD PRESSURE ABOVE 120/80 MAY INDICATE PRE- HYPERTENSION. 143/83 Patient Language: Lao Prescriptions: New nitrofurantoin monohyd/m-cryst [Macrobid] 100 mg capsule 100 mg PO Q12H 7 Days Qty: 14 0RF Rx Instructions: must administer with a meal/food No Action Wegovy 0.25 mg/0.5 mL pen injector SUBCUT lisinopril 20 mg tablet norethindrone (contraceptive) 0.35 mg tablet Follow-up/Referrals: UNKNOWN,DOCTOR [Primary Care Provider] Time of Disposition: 13:32 Quality Bridget Coma Scale Eyes: Open Verbal: Oriented and Alert Motor: Follows Commands [place] Coma Total Score: 15
[2025-10-08 13:33] LABS: EDUAAPPEAR Cloudy; EDUABILI Negative (Negative); EDUABLOOD Negative (Negative); EDUACOLOR1 Yellow; EDUAGLUCOSE Negative (Negative); EDUAKETONE Negative (Negative); EDUALEUKO Trace (Negative); EDUANITRATE Negative (Negative); EDUAPH 6.0; EDUAPROTEIN Negative (Negative); EDUASPGRAVITY 1.025; EDUAUROBILI 0.2
[2025-10-08 20:08] LABS: Trichomonas Vag PCR NOT DETECTED (NOT DETECTE)
== END 2025-10-08 13:38 | disposition home or self-care (01) ==
PROVIDERS: Emergency Provider Registered Nurse
DX: N39.0 Urinary tract infection, site not specified (principal); I10 Essential (primary) hypertension; Z11.3 Encounter for screening for infections with a predominantly sexual mode of transmission
CPT/HCPCS: 81003; 87086; 87491; 87591; 87661; 99213; G0463